=== PATIENT | female | born 1985 | race Two or more races ===

== ENCOUNTER 2025-03-29 08:24 | Emergency (ER) | payer MEDICAID, SELFPAY ==
[2025-03-29 08:34] VITALS: BP 110/72; PULSE 73; RESP 19; TEMP 36.9; O2SAT 99
[2025-03-29 08:35] VITALS: BMI 26.3
--- NOTE | 2025-03-29 08:44 | XR_ITS ---
Examination: Complete OB ultrasound, less than 14 weeks, transabdominal Date and time of exam: March 29, 2025, 0851 hrs. Indications: Pelvic pain beginning 2 days ago, 5 week by history. Technique: Obstetrical ultrasound images less than 14 weeks performed via transabdominal imaging Findings: A normal shaped single intrauterine gestation is present in the uterus. CRL 0.7 cm corresponds to 6 weeks 4 days gestational age. Cardiac motion 135 BPM. Ultrasonographic survey of visible and placental structures unremarkable. Amniotic fluid volume appears appropriate for this estimated gestational age. Right ovary 2.4 cm arterial flow. Left ovary 3.1 cm arterial flow, small follicular cyst Impression: Viable intrauterine gestation 6 weeks 4 days
[2025-03-29 09:43] LABS: Collection Type, Urine Clean Catch
[2025-03-29 10:04] LABS: Bacteria,Urine Rare; Bilirubin,Urine Negative (Negative); Blood,Urine Negative (Negative); Clarity,Urine Hazy (Clear/Hazy); Color,Urine Yellow (Lt Yel-Yel); Culture Indicated,Urine Not Indicated; Glucose, Urine Negative (Negative); Ketones,Urine Negative (Negative); Leukocyte Esterase,Urine Positive (Negative); Nitrite,Urine Negative (Negative); PH,Urine 6.0 (5.0-7.0); Protein,Urine Negative (Neg - Trace); RBC,Urine 2 /hpf (0-3); Specific Gravity,Urine 1.024 (1.001-1.035); Squamous Epithelial Cell,Urine 8 /hpf (0-5); Urobilinogen,Urine Negative mg/dL (0.0-1.0); WBC,Urine 8 /hpf (0-5)
--- NOTE | 2025-03-29 11:52 | EDNOTE_ITS ---
<Statement entered by Devi Rivas MD - 03/29/25 15:14> As co-signing physician, I was present and available for consult prn. I concur with the plan and care as documented by the midlevel provider. ED OB Contraction Preg RMI/HPI General Chief complaint: Abdominal Pain Stated complaint: PAIN LLQ ABD; PREG 5 WKS Time Seen by Provider: 03/29/25 08:40 Arrival date/time: 03/29/25 08:24 RME / HPI RME / HPI Narrative: 40-year-old patient presents emergency department with complaint of left lower pelvic pain for the past 2 days patient states she is . She denies pain with urination. She denies back pain. She denies vaginal bleeding. She denies recent trauma. Related Data Home Medications ?Medication ?Instructions ?Recorded ?Confirmed prenat.vits,chirag,pay-apra-knsvf 1 tab PO QDAY 09/14/20 10/30/22 Allergies Allergy/AdvReac Type Severity Reaction Status Date / Time amoxicillin Allergy Intermediate Rash Verified 03/29/25 08:30 Review of Systems Review of Systems Systems Reviewed: All systems reviewed, normal except as documented Constitutional Constitutional: Reports system reviewed and no additional complaints, except as documented Cardiovascular Cardiovascular: Reports system reviewed and no additional complaints, except as documented Gastrointestinal Gastrointestinal: Reports system reviewed and no additional complaints, except as documented Genitourinary Genitourinary: Reports system reviewed and no additional complaints, except as documented Musculoskeletal Musculoskeletal: Reports system reviewed and no additional complaints, except as documented Neurologic Neurologic: Reports system reviewed and no additional complaints, except as documented ED Exam General General appearance: Present alert and in no apparent distress Head Head exam: Present atraumatic and normocephalic ENT ENT exam: Present normal exam Respiratory Respiratory exam: Present normal lung sounds bilaterally Cardiovascular Cardiovascular exam: Present regular rate Neurological Exam Neurological exam: Present alert and oriented X3 Psychiatric Psychiatric exam: Present normal affect and normal mood Course Quality Measures none Orders Category Date Time Status US OB <= 14 weeks fetus Stat Exams 03/29/25 08:44 Completed Urinalysis, C/S if Indicated Stat Lab 03/29/25 09:15 Completed Vital Signs Vital signs: Vital Signs Temperature 98.4 F 03/29/25 08:34 Pulse Rate 73 03/29/25 08:34 Respiratory Rate 19 03/29/25 08:34 Blood Pressure 110/72 03/29/25 08:34 Pulse Oximetry (%) 99 03/29/25 08:34 Oxygen Delivery Method Room Air 03/29/25 08:34 OB/Uterine Contractions MDM Narrative MDM Narrative:: 40-year-old patient presents emergency department with complaint of left-sided pelvic pain she is G12, P4 and she is worried about possible ectopic . Ultrasound was negative for ovarian cyst, ovarian torsion/ectopic UA was also negative for UTI patient is stable to DC home to follow-up with PCP for [employer] referral. Patient data External records reviewed:: None Clinical information provided by:: patient Social determinants that could affect healthcare access:: none Patient has the following chronic illnesses:: na How is presenting disease/condition affected by chronic disease/condition?: no chronic disease Evaluation data The following diagnostics were reviewed and interpreted by me:: lab results and radiology exam(s) Lab and/or radiology exams considered but not ordered:: both ordered considered and ordered Interpretation Summary: UA unremarkable, US OB indicates live IUP with positive heart tones Medications / Prescriptions Medications or Prescriptions considered but not ordered:: na Medication administrations:: na Consultations Consultation(s) initiated? (list below): No Diagnosis OB Contractions Differential Diagnosis: other (na) Most likely diagnosis given after review of the tests above:: pelvic pain in Admission Indicated Explain why admission is indicated or not indicated:: no live threatening emergency noted Admission Request Was there a request for admission?: No Disposition Plan Disposition Plan: Discharge Discharge Attestation Discharge Attestation: The patient and all family members were given an opportunity to ask questions and understood the discharge instructions. Discharge instructions specifically effects, indications for sooner follow up or return to the emergency department, and the expected course of current diagnosis. Patient condition: Stable Discharge Plan Plan Patient Disposition: HOME (Self Care) Prescriptions/Referrals Prescriptions/Med Rec: No Action Vitamin Tablet 1 tab PO QDAY Referrals: Emery Huggins MD [Primary Care Provider, Family Practice] - In 1 week Problem List Clinical Impression: Pelvic pain affecting Patient/Caregiver Discharge Instructions Education Materials: ED Abdominal Pain, Early Print Language: Chinese Stand Alone Forms: Camelia Award Info., Patient Portal Info Letter
== END 2025-03-29 12:35 | disposition home or self-care (01) ==
PROVIDERS: Physician Assistant; Emergency Provider Emergency Medicine; PCP Family Medicine
DX: O26.891 Other specified pregnancy related conditions, first trimester (principal); Z3A.01 Less than 8 weeks gestation of pregnancy; R10.2 Pelvic and perineal pain
CPT/HCPCS: 76801; 81001; 99282